=== PATIENT | female | born 1985 | race Caucasian/White ===

== ENCOUNTER 2017-04-03 22:45 | Inpatient (IN) | payer OTHER ==
[2017-04-04] MEDS: DEXTROSE 5%-LACTATED RINGERS 1,000 ML IV SCH ×2 (01:00→05:25)
[2017-04-04 01:31] LABS: BASOPHIL 0.7 % (0-2.0); EOSINOPHIL 0.4 % (0-4.5); MCH 28.7 pg (25.7-33.7); MCHC 32.8 g/dl (32.0-36.0); MEAN CELL VOLUME 87.6 fl (80-96); MEAN PLT VOLUME 8.2 fl (7.5-11.1); NEUTROPHILS 71.9 % (42.8-82.8); PLATELET COUNT 375 K/MM3 (134-434); RDW 14.6 % (11.6-15.6); WHITE BLOOD COUNT 14.4 K/mm3 (4.0-10.0)
[2017-04-04 01:51] VITALS: BMI 34.0
[2017-04-04 01:53] LABS: CALCIUM 8.6 mg/dL (8.5-10.1); COCKROFT - GAULT 414.29; CREATININE 0.3 mg/dL (0.55-1.02)
[2017-04-04 02:14] LABS: INR 0.91 (0.82-1.09)
[2017-04-04 02:17] LABS: ACTIVATED PTT 28.7 SECONDS (26.9-34.4)
--- NOTE | 2017-04-04 08:17 | HP ---
Past Medical History - Primary Care Physician PCP:: Claude Ellison - Admission Chief Complaint: 31yo P3 admitted for sterilization and D&C. History of Present Illness: Multiparity Uterine polyps. History Source: Patient, Medical Record Limitations to Obtaining History: No Limitations - Past Medical History [employer] FEEDER: Yes: Migraine Cardiovascular: No: AFIB, Aneurysm, Aortic Insufficiency, Aortic Stenosis, CAD, CHF, Deep Vein Thrombosis, HTN, Hyperlipdemia, [place], Mitral Insufficiency, Mitral Stenosis, Murmur, Pulmonary Hypertension, Other Pulmonary: No: Asthma, Bronchitis, Cancer, COPD, O2 Dependent, Pneumonia, Previously Intubated, Pulmonary Embolus, Pulmonary Fibrosis, Sleep Apnea, Other Gastrointestinal: No: Ascites, Cancer, Constipation, Crohn's Disease, Diverticulitis, Diverticulosis, Esophageal Varices, Gastritis, GERD, GI Bleed, Hemorrhoids, Hiatal Hernia, Inflamatory Bowel Disease, Irritable Bowel Disease, Pancreatitis, Peptic Ulcer Disease, Ulcerative Colitis, Other Hepatobiliary: No: Cirrhosis, Cholelithiasis, Cholecystitis, Choledocholithiasis , Hepatitis A, Hepatitis B, Hepatitis C, Other Renal/: No: Renal Failure, Renal Inusuff, BPH, Cancer, Hematuria, Hemodialysis , Neurogenic Bladder, Renal Calculi, UTI, Other Reproductive: No: Ectopic , Endometriosis, Fibroids, PID, Polycystic Ovary Syndrome, Postmenopausal, Other ...: 1 ...Para: 0 ...Term: 0 ...: 0 ...Spon : 0 ...Induced : 0 ...Multiple Gestation: 0 ... Weeks Gestation by Dates: 0 ...EDC by Dates: 04/05/17 ...EDC by Sono: 04/05/17 Heme/Onc: No: Anemia, B12 Deficiency, Bleeding Disorder, Cancer, Current Chemotherapy, Current Radiation Therapy, Hemochromatosis, Hypercoaguable State, Myeloproliferative Synd, Sickle Cell Disease, Sickle Cell Trait, Thrombocytopenia, Other Infectious Disease: No: AIDS, C-Diff, Herpes Zoster, HIV, MRSA, STD's, Tuberculosis, VREF, Other Psych: No: Addictions, Anxiety, Bipolar, Depression, Panic, Psychosis, Schizophrenia, Other Musculoskeletal: No: Bursitis, Chronic low back pain, Hemiparesis, Hemiplegia, Osteoarthritis, Paraplegia, Other Rheumatology: No: Fibromyalgia, Gout, Lupus, Rheumatoid Arthritis, Sarcoidosis, Vasculitis, Other ENT: No: Allergic Rhinitis, Sinusitis, Other Endocrine: No: Elliott's Disease, [place]'s Disease, Diabetes Insipidus, Diabetes Mellitus, Hyperparathyroidism, Hyperthyroidism, Hypothyroidism, Osteopenia, SIADH, Other Dermatology: No: Basal Cell, Cellulitis, Eczema, Melanoma, Psoriasis, Squamous Cell, Other - Past Surgical History Hx Myomectomy: No Hx Transabdominal Cerclage: No Additional Surgical History: D&C - Smoking History Smoking history: Never smoked Have you smoked in the past 12 months: No - Alcohol/Substance Use Hx Alcohol Use: No History of Substance Use: reports: None - Social History Usual Living Arrangement: Yes: With Child ADL: Independent Occupation: RN History of Recent Travel: No Home Medications - Allergies Allergies/Adverse Reactions: Allergies Allergy/AdvReac Type Severity Reaction Status Date / Time No Known Allergies Allergy Verified 04/03/17 23:54 Family Disease History - Family Disease History Family History: Denies Review of Systems Findings/Remarks: Well - Review of Systems Constitutional: reports: No Symptoms Eyes: reports: No Symptoms HENT: reports: No Symptoms Neck: reports: No Symptoms Cardiovascular: reports: No Symptoms Respiratory: reports: No Symptoms Gastrointestinal: reports: No Symptoms Genitourinary: reports: No Symptoms Breasts: reports: No Symptoms Reported Musculoskeletal: reports: No Symptoms Integumentary: reports: No Symptoms Neurological: reports: No Symptoms Endocrine: reports: No Symptoms Hematology/Lymphatic: reports: No Symptoms Psychiatric: reports: No Symptoms Pain Intensity: 0 Physical Exam-MEDICAL SCRIBE Vital Signs: Vital Signs Temperature 98.8 F 04/04/17 05:00 Pulse Rate 83 04/04/17 05:00 Respiratory Rate 18 04/04/17 05:00 Blood Pressure 114/74 04/04/17 05:00 O2 Sat by Pulse Oximetry (%) Constitutional: Yes: Well Nourished, No Distress, Calm Eyes: Yes: WNL, Conjunctiva Clear HENT: Yes: WNL, Atraumatic, Normocephalic Neck: Yes: WNL, Supple, Trachea Midline Cardiovascular: Yes: WNL, Regular Rate and Rhythm Respiratory: Yes: WNL, Regular, CTA Bilaterally Gastrointestinal: Yes: WNL, Normal Bowel Sounds, Soft ...Rectal Exam: Yes: WNL Renal/: Yes: WNL Pelvis: Yes: WNL External Genitalia: Yes: Normal Vaginal Exam: Yes: Normal Cervix: Yes: Normal Uterus: Yes: Normal Adnexa: Not Palpable: Left, Right Breast(s): Yes: WNL Musculoskeletal: Yes: WNL Extremities: Yes: WNL Edema: No Integumentary: Yes: WNL Neurological: Yes: WNL, Alert, Oriented ...Motor Strength: WNL Psychiatric: Yes: WNL, Alert, Oriented Labs: CBC, BMP 04/04/17 01:15 04/04/17 01:15 Assessment/Plan 31yo admitted for sterilization and D&C. Risks, benefits, alternatives of surgery were discussed. We discussed the risks of infection, bleeding, scarring , injury to underlying organs and structures, etc. The pt verbalized her understanding and requested to proceed with surgery.
[2017-04-04] MEDS ORDERED: PROMETHAZINE HCL 25 MG/1 ML VIAL IVPB PRN (09:00)
[2017-04-04] MEDS ORDERED: OXYTOCIN 15 UNITS/ LR 250 ML 250 ML IVPB SCH (09:00)
[2017-04-04] MEDS ORDERED: BUTORPHANOL TARTRATE 1 MG/ML VIAL IVPB PRN (09:00)
[2017-04-04 09:45] LABS: URINE MARIJUANA THC NEGATIVE ng/ml (CUTOFF=50)
--- NOTE | 2017-04-04 10:19 | HP ---
Past Medical History - Primary Care Physician PCP:: Claude Ellison - Admission Chief Complaint: 31yo P0 with at EGA [id number] admitted with PROM at 10: 15pm on 04/03/17 History of Present Illness: complicated by late care transfer from [place]. Otherwise uncomplicated care. GCT note seen in chart GBS negative. IVF History Source: Patient, Medical Record Limitations to Obtaining History: No Limitations - Past Medical History CHINESE HERBALIST: No: Alzheimer's, CVA, Dementia, Migraine, Multiple Sclerosis, Peripheral Neuropathy, Parkinson's, Seizure, Syncope, TIA, Vertigo, Other Cardiovascular: No: AFIB, Aneurysm, Aortic Insufficiency, Aortic Stenosis, CAD, CHF, Deep Vein Thrombosis, HTN, Hyperlipdemia, [place], Mitral Insufficiency, Mitral Stenosis, Murmur, Pulmonary Hypertension, Other Pulmonary: No: Asthma, Bronchitis, Cancer, COPD, O2 Dependent, Pneumonia, Previously Intubated, Pulmonary Embolus, Pulmonary Fibrosis, Sleep Apnea, Other Gastrointestinal: No: Ascites, Cancer, Constipation, Crohn's Disease, Diverticulitis, Diverticulosis, Esophageal Varices, Gastritis, GERD, GI Bleed, Hemorrhoids, Hiatal Hernia, Inflamatory Bowel Disease, Irritable Bowel Disease, Pancreatitis, Peptic Ulcer Disease, Ulcerative Colitis, Other Hepatobiliary: No: Cirrhosis, Cholelithiasis, Cholecystitis, Choledocholithiasis , Hepatitis A, Hepatitis B, Hepatitis C, Other Renal/: No: Renal Failure, Renal Inusuff, BPH, Cancer, Hematuria, Hemodialysis , Neurogenic Bladder, Renal Calculi, UTI, Other ...: 1 ...Para: 0 ...Term: 0 ...: 0 ...Spon : 0 ...Induced : 0 ...Multiple Gestation: 0 ...LMP: 06/29/16 ... Weeks Gestation by Dates: 0 ...EDC by Dates: 04/05/17 ...EDC by Sono: 04/05/17 Heme/Onc: No: Anemia, B12 Deficiency, Bleeding Disorder, Cancer, Current Chemotherapy, Current Radiation Therapy, Hemochromatosis, Hypercoaguable State, Myeloproliferative Synd, Sickle Cell Disease, Sickle Cell Trait, Thrombocytopenia, Other Infectious Disease: No: AIDS, C-Diff, Herpes Zoster, HIV, MRSA, STD's, Tuberculosis, VREF, Other Psych: No: Addictions, Anxiety, Bipolar, Depression, Panic, Psychosis, Schizophrenia, Other Musculoskeletal: No: Bursitis, Chronic low back pain, Hemiparesis, Hemiplegia, Osteoarthritis, Paraplegia, Other Rheumatology: No: Fibromyalgia, Gout, Lupus, Rheumatoid Arthritis, Sarcoidosis, Vasculitis, Other ENT: No: Allergic Rhinitis, Sinusitis, Other Endocrine: No: White's Disease, [place]'s Disease, Diabetes Insipidus, Diabetes Mellitus, Hyperparathyroidism, Hyperthyroidism, Hypothyroidism, Osteopenia, SIADH, Other Dermatology: No: Basal Cell, Cellulitis, Eczema, Melanoma, Psoriasis, Squamous Cell, Other - Past Surgical History Hx Myomectomy: No Hx Transabdominal Cerclage: No Additional Surgical History: Laparotomy via midline incison for ovarian cystectomy. - Smoking History Smoking history: Never smoked Have you smoked in the past 12 months: No - Alcohol/Substance Use Hx Alcohol Use: No History of Substance Use: reports: None - Social History ADL: Independent Occupation: RN History of Recent Travel: No Home Medications - Allergies Allergies/Adverse Reactions: Allergies Allergy/AdvReac Type Severity Reaction Status Date / Time No Known Allergies Allergy Verified 04/03/17 23:54 Family Disease History - Family Disease History Family History: Denies Review of Systems - Review of Systems Constitutional: reports: No Symptoms Eyes: reports: No Symptoms HENT: reports: No Symptoms Neck: reports: No Symptoms Cardiovascular: reports: No Symptoms Respiratory: reports: No Symptoms Gastrointestinal: reports: No Symptoms Genitourinary: reports: No Symptoms Musculoskeletal: reports: No Symptoms Integumentary: reports: No Symptoms Neurological: reports: No Symptoms Endocrine: reports: No Symptoms Hematology/Lymphatic: reports: No Symptoms Psychiatric: reports: No Symptoms Pain Intensity: 2 Physical Exam - Maternity Vital Signs: Vital Signs Temperature 97.8 F 04/04/17 10:00 Pulse Rate 70 04/04/17 10:00 Respiratory Rate 18 04/04/17 10:00 Blood Pressure 123/81 04/04/17 10:00 O2 Sat by Pulse Oximetry (%) Constitutional: Yes: Well Nourished, No Distress, Calm Eyes: Yes: WNL, Conjunctiva Clear HENT: Yes: WNL, Atraumatic, Normocephalic Neck: Yes: WNL, Supple, Trachea Midline Cardiovascular: Yes: WNL, Regular Rate and Rhythm Lungs: Clear to auscultation, Normal air movement - Abdominal Exam/OB Fundal Height: 39 Number of Fetuses: Single Presentation: Vertex Contractions: Yes Regularity: Irregular Intensity: Mild Monitor Mode: External Heart Rate (range): 140 Heart Rate Location: Midline Category: I Accelerations: Uniform Decelerations: None - Vaginal Exam/OB Vaginal Bleediing: No Speculum Exam: No Dilatation (cm): 0.5 Effacement (%): 0 Amniotic Membrane Status: Leaking Nitrazine Test: Positive Amniotic Fluid: Yes: Clear Presentation: Vertex/Position Station: -4 (Adequate gynecoid pelvimetry.) - Physical Exam Musculoskeletal: Yes: WNL Extremities: Yes: WNL Edema: No Edema: LLE: Trace, RLE: Trace Integumentary: Yes: WNL Deep Tendon Reflex Grade: Normal +2 ...Motor Strength: WNL Psychiatric: Yes: WNL, Alert, Oriented - Labs Lab Results: CBC, BMP 04/04/17 01:15 04/04/17 01:15 Hemorrhage Risk Assessment - Risk Factors Medium Risk Factors: Yes: None High Risk Factors: Yes: None Risk Score: 1 Risk Level: Medium Risk Imaging - Results Ultrasound: Report Reviewed Assessment/Plan 31yo P0 with at EGA 39wd amitted with PROM last night. The heart tracing is Category I. The pt is not in labor. The patient initially requested an elective section but then changed her mind and wants to try labor. We discussed the risks of labor, delivery, section, pitocin induction, etc. I explained the risks of pain, distress, uterine tachysystole, hemorrhage, emergency C/S, etc. The pt verbalized her understanding and requested to proceed with labor indx.
[2017-04-04] MEDS ORDERED: AMPICILLIN - 100 ML IVPB ONE (14:30)
[2017-04-04] MEDS ORDERED: ELECTROLYTE-148 SOLN 500 ML IV ONE (17:30)
[2017-04-04] MEDS ORDERED: CITRIC ACID/SODIUM CITRATE 30 ML UNIT-DOSE CUP PO ONE (17:45)
[2017-04-04] MEDS ORDERED: ELECTROLYTE-148 SOLN 1,000 ML IV SCH (18:00)
[2017-04-04] MEDS: AMPICILLIN - 100 ML IVPB SCH (18:16)
--- NOTE | 2017-04-04 20:04 | PN ---
Progress Note, Physician Chief Complaint: 31 yo P0 assumed care of this patient @ 8am she declined to experience any pain, declined Pitocin augmentation now has prolonged ruptured membranes and declines vaginal exams - Current Medication List Current Medications: Active Medications Butorphanol Tartrate (Stadol -) 2 mg IVPB ONCE PRN PRN Reason: FOR PAIN Last Admin: 04/04/17 11:30 Dose: 2 mg Dextrose/Lactated Ringer's (D5-Lr -) 1,000 mls @ 125 mls/hr IV ASDIR SRIDEVI Last Admin: 04/04/17 05:25 Dose: 125 mls/hr Oxytocin/Lactated Ringer's (Lactated Ringer+ 15 Units Pitocin) 250 mls @ 1 mls/ hr IVPB ASDIR SRIDEVI; 0.06 UNIT/HR PRN Reason: Protocol Last Titration: 04/04/17 11:30 Dose: 0 unit/hr Ampicillin Sodium (Ampicillin 1 Gram Ivpb (Pre-Docked)) 100 mls @ 100 mls/hr IVPB Q4H SRIDEVI Stop: 04/05/17 18:14 Last Admin: 04/04/17 18:16 Dose: 100 mls/hr Parenteral Electrolytes (Plasma-Lyte 148 -) 1,000 mls @ 125 mls/hr IV ASDIR SRIDEVI Promethazine HCl (Phenergan Injection -) 25 mg IVPB ONCE PRN PRN Reason: FOR PAIN Last Admin: 04/04/17 11:30 Dose: 25 mg - Objective Vital Signs: Vital Signs Temperature 98.4 F 04/04/17 14:00 Pulse Rate 85 04/04/17 14:00 Respiratory Rate 18 04/04/17 14:00 Blood Pressure 130/83 04/04/17 14:00 O2 Sat by Pulse Oximetry (%) Labs: CBC, BMP 04/04/17 01:15 04/04/17 01:15 INR, PTT INR 0.91 (0.82-1.09) 04/04/17 01:15 Assessment/Plan 31 yo P0 with prolonged ROM desiring c/s long conversation with patient discussing all risks of a c/s Risk of injury to bowel, bladder, vessels, infection, bleeding difficulties with wound healing, risk of having another, repeat c/s
[2017-04-04] MEDS ORDERED: morphine SULFATE/Preservative Free 0.5 MG/ML (1cc Syringe) SPIN ONE (20:08)
[2017-04-04] MEDS ORDERED: ONDANSETRON 4 MG/2 ML VIAL IVPB PRN (20:13)
[2017-04-04] MEDS ORDERED: BENZOCAINE 20% 57 GM BOTTLE TP PRN (21:44)
[2017-04-04] MEDS ORDERED: IBUPROFEN 600 MG TABLET (FP) PO PRN (21:44)
[2017-04-04] MEDS ORDERED: IBUPROFEN 800 MG/8 ML IJ IVPB PRN (21:44)
[2017-04-04] MEDS ORDERED: WITCH HAZEL 50% (TUCKS) 40 PAD/JAR PAD TP PRN (21:44)
[2017-04-04] MEDS ORDERED: BENZOCAINE 28 GM HEMORRHOIDAL OINTMENT PR PRN (21:44)
[2017-04-04] MEDS ORDERED: diphenhydrAMINE HCL 25 MG CAPSULE (FP) PO PRN (21:44)
[2017-04-04] MEDS ORDERED: METHYLERGONOVINE MALEATE 0.2 MG/1 ML AMP IM PRN (21:44)
[2017-04-04] MEDS ORDERED: OXYTOCIN 20 UNITS in 0.9% NS 1,000 ML IV SCH (21:45)
[2017-04-04] MEDS ORDERED: DEXTROSE 5%-LACTATED RINGERS 1,000 ML IV SCH (21:45)
--- NOTE | 2017-04-04 21:53 | PN ---
Delivery - Delivery Vaginal Delivery: No Problems Section: Primary Type of Anesthesia: Epidural Episiotomy/Laceration: None EBL (cc): 700 Delivery, Single - Stages of Labor Date 1st Stage Initiatied: 04/03/17 Time 1st Stage Initiated: 21:15 Date of Delivery: 04/04/17 Time of Delivery: 20:33 Date Placenta Delivered: 04/04/17 Time Placenta Delivered: 20:34 Placenta: Yes: Expressed - Condition of Food Beverage Manager/Supervisor Plate Forming Present: Yes Infant Gender: Female Weight: 7 lb 4.8 oz Position: Left, OA - 1 Minute Total Score: 9 5 Minutes Total Score: 9 - Feeding Plan Benefits of Exclusively reinforced: Yes Remarks - Remarks Remarks: Multiple abdominal adhesion, due to prior surgery Loop of large bowel adherent to anterior peritoneum Left ovary identified, encased in adhesion Right ovary was not seen UO 200cc Fluids 1200cc
[2017-04-05] MEDS ORDERED: CEFAZOLIN 1 GM/D5W 50 ML IVPB SCH (02:00)
[2017-04-05] MEDS ORDERED: CEFAZOLIN (PRE-DOCKED) 50 ML IVPB ONE (02:28)
[2017-04-05] MEDS: CEFAZOLIN 1 GM/D5W 50 ML IVPB SCH ×2 (02:34→10:28)
[2017-04-05] MEDS: ACETAMINOPHEN 325 MG TABLET (FP) PO PRN ×3 (06:22→18:36)
[2017-04-05] MEDS: AMPICILLIN - 100 ML IVPB SCH (07:00)
[2017-04-05 07:37] LABS: BASOPHIL 0.3 % (0-2.0); EOSINOPHIL 0.1 % (0-4.5); MCH 29.3 pg (25.7-33.7); MCHC 33.7 g/dl (32.0-36.0); MEAN CELL VOLUME 87.2 fl (80-96); MEAN PLT VOLUME 7.9 fl (7.5-11.1); NEUTROPHILS 82.3 % (42.8-82.8); PLATELET COUNT 276 K/MM3 (134-434); RDW 14.7 % (11.6-15.6); WHITE BLOOD COUNT 16.7 K/mm3 (4.0-10.0)
--- NOTE | 2017-04-05 08:06 | PN ---
Progress Note, Physician Chief Complaint: Pt. pain controlled, no ACUÑA. Not yet ambulating and still has rosas. No apparent anesthesia complications. - Current Medication List Current Medications: Active Medications Acetaminophen (Tylenol -) 650 mg PO Q4H PRN PRN Reason: FEVER OR PAIN Last Admin: 04/05/17 06:22 Dose: 650 mg Benzocaine (Americaine Ointment -) 1 applic NC PRN PRN PRN Reason: PAIN Benzocaine (Americaine 20% Adkins -) 1 spray TP PRN PRN PRN Reason: PAIN Bisacodyl (Dulcolax Suppository -) 10 mg RC PRN PRN PRN Reason: CONSTIPATION Butorphanol Tartrate (Stadol -) 2 mg IVPB ONCE PRN PRN Reason: FOR PAIN Last Admin: 04/04/17 11:30 Dose: 2 mg Diphenhydramine HCl (Benadryl Injection -) 25 mg IVPUSH Q4H PRN PRN Reason: Pruritis Last Admin: 04/05/17 06:21 Dose: 25 mg Diphenhydramine HCl (Benadryl -) 25 mg PO Q8H PRN PRN Reason: FOR ITCHING Diphtheria/Tetanus/Acell Pertussis (Boostrix -) 0.5 ml IM .ONCE ONE Stop: 04/06/17 10:01 Dextrose/Lactated Ringer's (D5-Lr -) 1,000 mls @ 125 mls/hr IV ASDIR SRIDEVI Last Admin: 04/04/17 05:25 Dose: 125 mls/hr Oxytocin/Lactated Ringer's (Lactated Ringer+ 15 Units Pitocin) 250 mls @ 1 mls/ hr IVPB ASDIR SRIDEVI; 0.06 UNIT/HR PRN Reason: Protocol Last Titration: 04/04/17 11:30 Dose: 0 unit/hr Parenteral Electrolytes (Plasma-Lyte 148 -) 1,000 mls @ 125 mls/hr IV ASDIR SRIDEVI Dextrose/Lactated Ringer's (D5-Lr -) 1,000 mls @ 125 mls/hr IV ASDIR SRIDEVI Cefazolin Sodium (Ancef 1 Gm Premixed Ivpb -) 50 mls @ 100 mls/hr IVPB Q8H-IV SRIDEVI Stop: 04/05/17 10:29 Last Admin: 04/05/17 02:34 Dose: 100 mls/hr Ibuprofen (Motrin -) 600 mg PO Q4H PRN PRN Reason: PAIN Ibuprofen (Caldolor Injection -) 800 mg IVPB Q6H PRN PRN Reason: PAIN Stop: 04/05/17 09:45 Methylergonovine Maleate (Methergine Injection -) 0.2 mg IM Q4H PRN PRN Reason: EXCESSIVE BLEEDING Oxycodone HCl (Roxicodone -) 5 mg PO Q4H PRN PRN Reason: PAIN LEVEL 1-5 Oxycodone HCl (Roxicodone -) 10 mg PO Q4H PRN PRN Reason: PAIN LEVEL 6-10 Promethazine HCl (Phenergan Injection -) 25 mg IVPB ONCE PRN PRN Reason: FOR PAIN Last Admin: 04/04/17 11:30 Dose: 25 mg Senna/Docusate Sodium (Pericolace -) 2 tablet PO HS PRN PRN Reason: CONSTIPATION Simethicone (Mylicon -) 80 mg PO Q4H PRN PRN Reason: GAS Witch Kayleigh/Glycerin (Tucks Pads -) 1 pad TP PRN PRN PRN Reason: PAIN - Objective Vital Signs: Vital Signs Temperature 101.9 F H 04/05/17 06:00 Pulse Rate 100 H 04/05/17 06:00 Respiratory Rate 20 04/05/17 07:00 Blood Pressure 100/45 04/05/17 06:00 O2 Sat by Pulse Oximetry (%) 98 04/04/17 22:20 Constitutional: Yes: Well Nourished, No Distress, Calm Musculoskeletal: Yes: WNL Neurological: Yes: WNL, Alert, Oriented ...Motor Strength: WNL Labs: CBC, BMP 04/05/17 06:00 04/04/17 01:15 INR, PTT INR 0.91 (0.82-1.09) 04/04/17 01:15 Assessment/Plan POD#1 s/p under spinal with duramorph. Doing well. D/C from anesthesia care once she ambulates and voids normally.
[2017-04-05 10:48] LABS: BASOPHIL 0.4 % (0-2.0); EOSINOPHIL 0.1 % (0-4.5); MCH 28.9 pg (25.7-33.7); MCHC 33.1 g/dl (32.0-36.0); MEAN CELL VOLUME 87.3 fl (80-96); MEAN PLT VOLUME 7.5 fl (7.5-11.1); PLATELET COUNT 265 K/MM3 (134-434); RDW 14.6 % (11.6-15.6)
[2017-04-05 11:56] LABS: URINE APPEARANCE CLEAR; URINE BILIRUBIN NEGATIVE (NEGATIVE); URINE COLOR LTYELLOW; URINE GLUCOSE (UA) NEGATIVE (NEGATIVE); URINE KETONE TRACE (NEGATIVE); URINE LEUK ESTERASE NEGATIVE (NEGATIVE); URINE NITRITE NEGATIVE (NEGATIVE); URINE PROTEIN NEGATIVE (NEGATIVE); URINE UROBILINOGEN NEGATIVE E.U./dl (0.2-1.0)
[2017-04-05 11:58] LABS: URINE BLOOD 1+ (NEGATIVE)
[2017-04-05 11:59] LABS: URINE MUCUS RARE; URINE RBC 8 /hpf (0-3); URINE WBC 1 /hpf (3-5)
--- NOTE | 2017-04-05 13:13 | PN ---
Post Progress Note - Subjective Subjective: 31 yo P1 now s/p Primary c/section Velásquez removed 2hrs ago, she has not voided, reports flatus, she has not ambulated Post Day: 1 Type of Delivery: Primary C/S Vital Signs: Vital Signs Temperature 99.8 F H 04/05/17 10:00 Pulse Rate 102 H 04/05/17 10:00 Respiratory Rate 20 04/05/17 12:00 Blood Pressure 90/58 04/05/17 10:00 O2 Sat by Pulse Oximetry (%) 98 04/04/17 22:20 Breast Exam: Yes: Soft Uterus: Yes: Fundus Firm Incision: Yes: Dressing dry and intact Abdomen/GI: Yes: Abdomen soft, Passing flatus (+BS), Tolerating PO Lochia: Yes: Rubra Extremities: Yes: Calves non-tender Activity: Other (in bed) - Labs Labs: CBC WBC 15.0 K/mm3 (4.0-10.0) H 04/05/17 09:44 RBC 3.67 M/mm3 (3.60-5.2) 04/05/17 09:44 Hgb 10.6 GM/dL (10.7-15.3) L 04/05/17 09:44 Hct 32.0 % (32.4-45.2) L 04/05/17 09:44 MCV 87.3 fl (80-96) 04/05/17 09:44 MCHC 33.1 g/dl (32.0-36.0) 04/05/17 09:44 RDW 14.6 % (11.6-15.6) 04/05/17 09:44 Plt Count 265 K/MM3 (134-434) 04/05/17 09:44 MPV 7.5 fl (7.5-11.1) 04/05/17 09:44 Neutrophils % 81.0 % (42.8-82.8) 04/05/17 09:44 Lymphocytes % 12.8 % (8-40) 04/05/17 09:44 Monocytes % 5.7 % (3.8-10.2) 04/05/17 09:44 Eosinophils % 0.1 % (0-4.5) 04/05/17 09:44 Basophils % 0.4 % (0-2.0) 04/05/17 09:44 Assessment/Plan 31 yo P1 now s/p Primary LST c/section for prolonged ROM, remote from delivery @ 4cm declining further BRI She had significant bowel adhesions due to prior abdominal surgery Encouraged to ambulate and attempt to void, cont. routine post op care Rh pos, no need for Rhogam
[2017-04-05] MEDS: SIMETHICONE 80 MG TAB.CHEW (FP) PO PRN ×3 (13:35→23:56)
[2017-04-05] MEDS: oxyCODONE HCL 5 MG TABLET PO PRN ×3 (13:36→23:56)
[2017-04-05 13:57] LABS: CALCIUM 8.3 mg/dL (8.5-10.1); COCKROFT - GAULT 248.574; CREATININE 0.5 mg/dL (0.55-1.02)
[2017-04-05] MEDS ORDERED: BISACODYL 10 MG SUPP.RECT RC PRN (21:44)
[2017-04-05] MEDS: IBUPROFEN 600 MG TABLET (FP) PO PRN (23:58)
--- NOTE | 2017-04-06 08:46 | PN ---
Post Progress Note - Subjective Subjective: No complaints, (+) flatus, ambulating, minimal pain Post Day: 2 Type of Delivery: Primary C/S Vital Signs: Vital Signs Temperature 97.9 F 04/06/17 06:00 Pulse Rate 99 H 04/05/17 22:00 Respiratory Rate 18 04/05/17 22:00 Blood Pressure 104/55 04/05/17 22:00 O2 Sat by Pulse Oximetry (%) 98 04/04/17 22:20 Breast Exam: Yes: Soft Uterus: Yes: Fundus Firm, Fundus below umbilicus, Non-tender Incision: Yes: Sutures intact Abdomen/GI: Yes: Abdomen soft, Passing flatus, Tolerating PO Lochia: Yes: Rubra Lochia, amount: Small Extremities: Yes: Calves non-tender, Edema (trace) Perineum: Yes: Intact Activity: Ambulating - Labs Labs: CBC WBC 15.0 K/mm3 (4.0-10.0) H 04/05/17 09:44 RBC 3.67 M/mm3 (3.60-5.2) 04/05/17 09:44 Hgb 10.6 GM/dL (10.7-15.3) L 04/05/17 09:44 Hct 32.0 % (32.4-45.2) L 04/05/17 09:44 MCV 87.3 fl (80-96) 04/05/17 09:44 MCHC 33.1 g/dl (32.0-36.0) 04/05/17 09:44 RDW 14.6 % (11.6-15.6) 04/05/17 09:44 Plt Count 265 K/MM3 (134-434) 04/05/17 09:44 MPV 7.5 fl (7.5-11.1) 04/05/17 09:44 Neutrophils % 81.0 % (42.8-82.8) 04/05/17 09:44 Lymphocytes % 12.8 % (8-40) 04/05/17 09:44 Monocytes % 5.7 % (3.8-10.2) 04/05/17 09:44 Eosinophils % 0.1 % (0-4.5) 04/05/17 09:44 Basophils % 0.4 % (0-2.0) 04/05/17 09:44 Assessment/Plan 31yo P1 s/p primary LT C/S, doing well stable, afebrile x 24hrs. No focal source of infx or fever. CXR pending care instructions reviewed. Continue routine postop care. Ambulation encouraged.
[2017-04-06] MEDS ORDERED: DIPHTH,PERTUSS(ACELL),TET 0.5 ML DISP.SYRIN IM ONE (13:00)
--- NOTE | 2017-04-06 13:42 | OP ---
DATE OF OPERATION: 04/04/2017 PREOPERATIVE DIAGNOSIS: A 31-year-old para 0 with prolonged rupture of membranes admitted on April 03 remote from delivery at 4 cm dilation and prior abdominal surgery for removal of right ovarian cyst, likely adnexa. PROCEDURE: Primary low-segment transverse section and lysis of adhesion. SURGEON: Perry Lopez MD BARKEEP: Claude Ellison MD DESCRIPTION OF THE OPERATIVE PROCEDURE: After ensuring informed consent and listing all risks, benefits, and alternatives to the patient which included risks of injury to the bowel, bladder, vessels, infection and bleeding, and harder recovery, and possibly need for subsequent delivery with a subsequent , patient adamantly requested primary section. Patient was brought to the operating room and placed into dorsal supine position with left lateral tilt. Abdomen was prepped in a sterile fashion and draped. Pfannenstiel skin incision was made with a scalpel and carried down to the level of fascia with the scalpel. Fascia was nicked at the midline and extended bilaterally with Bovie cautery. Muscle was split in the midline and subsequently peritoneum was identified, tented with hemostats, and entered sharply with good visualization of underlying bowel which was adhesed to the anterior peritoneum. The bladder was retracted with the lower edge of the [place]. The vesicouterine peritoneum was tented and dissected bilaterally with Metzenbaum scissors and bladder flap was created and retracted with the [place]. Uterine incision was made with the scalpel and dissected bilaterally with bandage scissors. 's head was delivered atraumatically in the left occiput anterior position. The was delivered without any difficulty. Cord was clamped and cut and female which was 7 pounds 4.8 ounces was given to colorectal surgeon. Apgars were 9 and 9. Placenta was expressed. Uterus was cleared of clots and debris and repaired with 0 Biosyn in running locking fashion. A 2nd imbricating layer was created to cover the 1st layer also with 0 Biosyn suture. Subsequently, excellent hemostasis was achieved and peritoneum was surveyed and it was identified that there were multiple adhesions of the large loop of bowel densely adherent to the anterior peritoneum as well as the omentum adherent to the anterior peritoneum, so there was difficulty fully repairing the parietal peritoneum. Muscle was reapproximated with 0 Biosyn in the midline to cover the internal organs. Prior to muscle repair, it was also identified that patient only had left adnexa which was encased in a lot of adhesion due to prior surgery. The fascia was repaired with 0 Vicryl and subcuticular stitches were placed with 2-0 chromic and skin was reapproximated in subcutaneous fashion. Patient had 200 mL of urine output, received 1200 mL of Plasmalyte, and estimated blood loss was 700 mL. Uterus was expressed of clots and debris. All instrument and sponge counts were correct x2. Patient was brought to the recovery room in stable condition. PERRY LOPEZ M.D. [id number]
[2017-04-06] MEDS: oxyCODONE HCL 5 MG TABLET PO PRN (13:56)
[2017-04-06] MEDS: IBUPROFEN 600 MG TABLET (FP) PO PRN (13:57)
[2017-04-06] MEDS: SIMETHICONE 80 MG TAB.CHEW (FP) PO PRN (13:57)
[2017-04-06] MEDS ORDERED: SENNOSIDES/DOCUSATE COMBO (SENNA PLUS) TABLET (UD) PO PRN (22:00)
[2017-04-07] MEDS: SIMETHICONE 80 MG TAB.CHEW (FP) PO PRN ×3 (04:09→22:21)
[2017-04-07] MEDS: ACETAMINOPHEN 325 MG TABLET (FP) PO PRN ×3 (04:09→22:21)
[2017-04-07] MEDS: IBUPROFEN 600 MG TABLET (FP) PO PRN ×3 (04:12→22:22)
--- NOTE | 2017-04-07 07:56 | PN ---
Post Progress Note - Subjective Subjective: Patient without acute complaints. Reports tolerating oral intake without nausea or vomiting. Ambulating without dizziness. Denies fevers or chills. Pain well controlled with oral pain medication. without difficulty. Passing flatus. Post Day: 3 Type of Delivery: Primary C/S Vital Signs: Vital Signs Temperature 98.5 F 04/06/17 22:00 Pulse Rate 92 H 04/06/17 22:00 Respiratory Rate 18 04/06/17 22:00 Blood Pressure 96/51 04/06/17 22:00 O2 Sat by Pulse Oximetry (%) 98 04/04/17 22:20 Breast Exam: Yes: Engorged Uterus: Yes: Fundus Firm, Fundus below umbilicus Incision: Yes: Sutures intact Abdomen/GI: Yes: Abdomen soft, Passing flatus, Tolerating PO. No: Tender Lochia: Yes: Serosa Lochia, amount: Small Activity: Ambulating - Labs Labs: CBC WBC 15.0 K/mm3 (4.0-10.0) H 04/05/17 09:44 RBC 3.67 M/mm3 (3.60-5.2) 04/05/17 09:44 Hgb 10.6 GM/dL (10.7-15.3) L 04/05/17 09:44 Hct 32.0 % (32.4-45.2) L 04/05/17 09:44 MCV 87.3 fl (80-96) 04/05/17 09:44 MCHC 33.1 g/dl (32.0-36.0) 04/05/17 09:44 RDW 14.6 % (11.6-15.6) 04/05/17 09:44 Plt Count 265 K/MM3 (134-434) 04/05/17 09:44 MPV 7.5 fl (7.5-11.1) 04/05/17 09:44 Neutrophils % 81.0 % (42.8-82.8) 04/05/17 09:44 Lymphocytes % 12.8 % (8-40) 04/05/17 09:44 Monocytes % 5.7 % (3.8-10.2) 04/05/17 09:44 Eosinophils % 0.1 % (0-4.5) 04/05/17 09:44 Basophils % 0.4 % (0-2.0) 04/05/17 09:44 Assessment/Plan 31 yoPOD #3 s/p primary CD, afebrile, vital signs stable, doing well 1. Continue routine postoperative care. 2. Encourage ambulation and incentive spirometer use 3. Continue oral pain medication 4. Anticipate discharge home postoperative day #4
[2017-04-07 08:27] LABS: BASOPHIL 0.3 % (0-2.0); EOSINOPHIL 0.6 % (0-4.5); MCH 29.5 pg (25.7-33.7); MCHC 33.6 g/dl (32.0-36.0); MEAN CELL VOLUME 87.6 fl (80-96); MEAN PLT VOLUME 7.8 fl (7.5-11.1); NEUTROPHILS 76.1 % (42.8-82.8); PLATELET COUNT 312 K/MM3 (134-434); RDW 14.7 % (11.6-15.6); WHITE BLOOD COUNT 12.7 K/mm3 (4.0-10.0)
[2017-04-08] MEDS: ACETAMINOPHEN 325 MG TABLET (FP) PO PRN ×2 (01:46→08:22)
[2017-04-08] MEDS: IBUPROFEN 600 MG TABLET (FP) PO PRN ×2 (01:46→08:23)
[2017-04-08] MEDS: SIMETHICONE 80 MG TAB.CHEW (FP) PO PRN ×2 (01:47→08:22)
--- NOTE | 2017-04-08 05:00 | DS ---
Physical Exam-INTERNET MARKETING STRATEGIST Vital Signs: Vital Signs Temperature 97.9 F 04/07/17 22:00 Pulse Rate 90 04/07/17 22:00 Respiratory Rate 20 04/07/17 22:00 Blood Pressure 119/90 04/07/17 22:00 O2 Sat by Pulse Oximetry (%) 98 04/04/17 22:20 Constitutional: Yes: Well Nourished, No Distress, Calm Eyes: Yes: WNL, Conjunctiva Clear, EOM Intact HENT: Yes: WNL, Atraumatic, Normocephalic Neck: Yes: WNL, Supple, Trachea Midline Cardiovascular: Yes: WNL, Regular Rate and Rhythm Respiratory: Yes: WNL, Regular, CTA Bilaterally Gastrointestinal: Yes: WNL ...Rectal Exam: Yes: WNL Renal/: Yes: WNL Vaginal Exam: Yes: Normal ....Post : Yes: Uterus firm, Uterus non-tender, Slight lochia rubra Breast(s): Yes: WNL Musculoskeletal: Yes: WNL Extremities: Yes: WNL Integumentary: Yes: WNL Wound/Incision: Yes: Clean/Dry, Well Approximated, Sutures Intact Neurological: Yes: WNL, Alert, Oriented ...Motor Strength: WNL Psychiatric: Yes: WNL, Alert, Oriented Labs: CBC, BMP 04/07/17 07:45 04/05/17 13:00 Delivery - Delivery Vaginal Delivery: No Problems Section: Primary, Low Flap Transverse Type of Anesthesia: Spinal Episiotomy/Laceration: None EBL (cc): 700 Delivery, Single - Stages of Labor Date 1st Stage Initiatied: 04/03/17 Time 1st Stage Initiated: 21:15 Date of Delivery: 04/04/17 Time of Delivery: 20:33 Time Placenta Delivered: 20:34 Placenta: Yes: Expressed - Condition of Bumper Operator/Site Head Present: Yes Name: Eugenia Espinosa Infant Gender: Female Weight: 7 lb 4.8 oz Position: Left, OA Total Hours ROM (Hrs/Mins): 20HRS/18MINUTES - 1 Minute Total Score: 9 5 Minutes Total Score: 9 - Feeding Plan Initial Plan: Elected not to breastfeed exclusively throughout hospitalization Benefits of Exclusively reinforced: Yes Discharge Summary Reason For Visit: ADMIT FOR LABOR Procedures: Principal: primary LST c/s Condition: Good - Instructions Diet, Activity, Other Instructions: regular diet, follow up office 1 week Referrals: Davis Claudio MD [Staff Physician] - Disposition: HOME - Home Medications Comprehensive Discharge Medication List: Ambulatory Orders Ibuprofen [Motrin -] 600 mg PO QID #28 tablet 04/07/17
[2017-04-08 08:35] VITALS: BP 101/76; PULSE 80; TEMP 98
--- NOTE | 2017-04-08 15:29 | PATH ---
Surgical Pathology Report Patient Name: CHRISTAL MIRANDA Med. Rec. #: [id number] /Age/Gender: 1985 (Age: 31) / F Account: [id number] Location: [facility] OBS/TELEPHONE WORKER Taken: 04/04/2017 Received: 04/05/2017 Reported: 04/08/2017 Physicians: Claude Ellison M.D. Specimen(s) Received PLACENTA Clinical History 31 yo female having primary c/section Ovarian cyst removed 2010 Final Diagnosis PLACENTA, DELIVERY: FOCALLY DISRUPTED THIRD TRIMESTER PLACENTA WITH FOCAL INFARCT AND FIBRIN THROMBUS, MODERATE PREVILLOUS, PERIVILLOUS, AND PRECHORIONIC FIBRIN DEPOSITION, THREE VESSEL UMBILICAL CORD, AND UNREMARKABLE PLACENTAL MEMBRANES. Electronically Signed Miquel Santana M.D. Gross Description The specimen is received fresh, labeled "placenta" and is a 475 gram, 19.0 x 15.5 x 2.2 cm placenta with attached membranes and umbilical cord. The attached membranes are rand, translucent with focal opacities and insert marginally. The umbilical cord measures 27 cm in length and averages 1.5 cm in diameter. The cord inserts eccentrically, 4.5 cm to the nearest margin. No true knots or strictures are identified. Cut surface of the umbilical cord reveals 3 vessels. The surface is harley-blue with fibrin deposition and appropriate caliber vessels. The maternal surface is red-brown with focal defects. Sectioning reveals a 1.8 cm in greatest dimension rand lesion subjacent to the umbilical cord insertion site. The remaining placental parenchyma is red-brown and spongy. Butcher Supervisor sections are submitted in 5 cassettes as follows: 1-membrane rolls; 2-umbilical cord; 3-lesion at umbilical cord insertion site; 0-9-labiauizpvszsa full thickness sections of placenta. /04/07/2017 [facility]04/07/2017
== END 2017-04-08 12:15 | disposition home or self-care (01) | DRG 540 ==
LOC: JDEL 22:45 → JLDR 04-04 → J3W 04-04 23:36
PROVIDERS: ADMIT Obstetrics & Gynecology; ATTEND Obstetrics & Gynecology
PROC: 10D00Z1 Extraction of Products of Conception, Low, Open Approach (ICD-10-PCS; principal; 2017-04-04)
DX: O42.92 Full-term premature rupture of membranes, unspecified as to length of time between rupture and onset of labor (principal); Z3A.39 39 weeks gestation of pregnancy; Z37.0 Single live birth
CPT/HCPCS: 36415; 59025; 71020-TC; 76819-TC; 80048; 80307; 81003; 81015; 85025; 85610; 85730; 86593; 86850; 86900; 86901; 87040; 87086; 88307-TC; 90715

== ENCOUNTER 2019-02-18 15:34 | Emergency (ER) | payer OTHER ==
[2019-02-18 15:38] VITALS: TEMP 98.4; BMI 32.0
--- NOTE | 2019-02-18 16:01 | PDOC ---
History of Present Illness - General Chief Complaint: Nausea/Vomiting Stated Complaint: VOMITING Time Seen by Provider: 02/18/19 15:58 History Source: Patient Exam Limitations: No Limitations - History of Present Illness Initial Comments: 33 yo F w no significant pmh presents to the ER via private auto with abdominal pain, nausea, vomiting, and diarrhea since last night at 1 AM. She states she ate some fish and shrimp with her family last night for dinner then they all smoked hooka together. the patient felt a bit nauseous after the meal, went to bed, and then woke up at 1 am with epigastric abdominal pain which did not radiate and was rated 6/10. The pain was associated with nausea and vomiting. She has vomitted 4 times since last night all NBNB. This morning she began experiencing watery diarrhea which was not bloody. She endorses significant chills and sweats but denies having had a fever at any point. Denies fevers, dysuria, frequency, urgency, or syncope. LMP: 02/14 - finishing the last day of her period today. Periods are normal without intermenstrual bleeding or d/c. Denies sexual activity in past 3 months. PCP: Duane Hammonds PSH: b/l ovarian cyst removal Allergies: NKA, NKDA Social Hx: Smokes hooka weekly. Denies alcohol, other substance usage, marijuana , or cigarettes. Past History - Past Medical History Allergies/Adverse Reactions: Allergies Allergy/AdvReac Type Severity Reaction Status Date / Time No Known Allergies Allergy Verified 02/18/19 15:38 Home Medications: Ambulatory Orders NK [No Known Home Medication] 02/18/19 Asthma: No Cancer: No Cardiac Disorders: No COPD: No Diabetes: No HTN: No Seizures: No Thyroid Disease: No - Suicide/Smoking/Psychosocial Hx Smoking History: Never smoked Have you smoked in the past 12 months: No Hx Alcohol Use: No Drug/Substance Use Hx: No Hx Substance Use Treatment: No Review of Systems - Review of Systems Able to Perform ROS?: Yes Comments:: CONSTITUTIONAL: Present: Chills, fatigue Absent: fever EYES: Absent: visual changes ENT: Absent: ear pain, no sore throat CARDIOVASCULAR: Absent: chest pain, no palpitations RESPIRATORY: Absent: cough, no SOB GI: Present: abdominal pain, nausea, vomiting, diarrhea Absent: no constipation GENITOURINARY: Absent: dysuria, no frequency, no hematuria MUSKULOSKELETAL: Absent: back pain, no arthralgia, no myalgia SKIN: Absent: rash NEURO: Absent: headache *Physical Exam - Vital Signs Last Vital Signs Temp Pulse Resp BP Pulse Ox 98.4 F 89 18 114/66 99 02/18/19 15:36 02/18/19 15:36 02/18/19 15:36 02/18/19 15:36 02/18/19 15:36 - Physical Exam Comments: GENERAL: Well-appearing, well-nourished. Moderate distress. HEENT: Normocephalic, atraumatic. PERRL, EOM intact. CARDIOVASCULAR: Normal S1, S2. Regular rate and rhythm. PULMONARY: No evidence of respiratory distress. Lungs clear to auscultation bilaterally. No wheezing, rales or rhonchi. ABDOMEN: There is significant epigastric TTP. + sargent sign. Abdomen is still soft and non-distended with normal BS. EXTREMITIES: Normal ROM in all four extremities. No gross deformities. SKIN: Warm, dry. No rash NEUROLOGICAL: No focal neurological deficits. Procedures - Bedside Ultrasound Bedside Ultrasound: Gallbladder Remarks: Normal Gallbladder US. No stones, wall edema, barb-chol fluid, neg sono sargent sign. Impression: Normal gallbladder US. Heart Score/ECG Review - ECG Intrepretation Rhythm: Regular Rhythm - Scobey Scobey: Normal - P and [place] Delta Wave(s) Present: No WPW: No - ST and T Early Repolarization: No Non Specific ST-T Wave changes: No Flattened T Waves: No Prolonged Q-T Interval: No - ECG Impressions Normal ECG: Yes Non-specific ST Elevation: No Ischemic Changes: No ED Treatment Course - LABORATORY CBC & Chemistry Diagram: 02/18/19 16:18 02/18/19 16:18 Medical Decision Making - Medical Decision Making 33 yo F w no significant pmh presents to the ER via private auto with abdominal pain, nausea, vomiting, and diarrhea since last night at 1 AM. She states she ate some fish and shrimp with her family last night for dinner then they all smoked hooka together. the patient felt a bit nauseous after the meal, went to bed, and then woke up at 1 am with epigastric abdominal pain which did not radiate and was rated 6/10. The pain was associated with nausea and vomiting. She has vomitted 4 times since last night all NBNB. This morning she began experiencing watery diarrhea which was not bloody. She endorses significant chills and sweats but denies having had a fever at any point. Denies fevers, dysuria, frequency, urgency, or syncope. LMP: 02/14 - finishing the last day of her period today. Periods are normal without intermenstrual bleeding or d/c. Denies sexual activity in past 3 months. VS: WNL DDx IBNLT: gastroenteritis - viral vs bacterial, PUD, Gastritis, GERD, pancreatitis, cholecystitis, renal colic, UTI/Pylo, electrolyte/metabolic disturbance, - IUP vs Ectopic. Plan: Cbc, Cmp, lipase, ua, hcg, ekg, RUQ us, IVNS, GI cocktail, analgesia, re- assess. POCUS: normal gallbladder, no stones, edema, barb chol fluid, neg sono sargent. Labs: HCG negative, lipase normal, Urine and bloodwork unremarkable. EKG: Normal sinus rate of 79. Normal QTc of 431. Patient feels much better after medications - am giving her a meal to PO challenge her. If successful will DC. Patient ate a full meal with no nausea or vomiting. - DCing patient with GI referall for follow up in the next 3 to 5 days. *DC/Admit/Observation/Transfer Diagnosis at time of Disposition: Nausea & vomiting, Diarrhea, Abdominal pain - Discharge Dispostion Disposition: HOME Condition at time of disposition: Improved Decision to Admit order: No - Referrals Referrals: Christa Hammonds [Primary Care Provider] - Jaycee Keane DO [Staff Physician] - - Patient Instructions Printed Discharge Instructions: Acute Abdominal Pain, DI for Diarrhea and Traveler's Diarrhea -- Adult, DI for Nausea -- Adult, DI for Vomiting -- Adult Additional Instructions: You came into the ER with nausea, vomiting, abdominal pain, and diarrhea. We looked at your blood and urine and found no abnormalities. We did an ultrasound of your gallbladder which showed no abnormalities. We believe you might have had a stomach virus from food poisoning. We are giving you the number for a nuclear auxiliary operator to call and schedule an anointment with in the next 3 to 5 days. Please also schedule a follow up appointment with your PCP in the next week to make sure you are getting better and being taken care of. Come back to the ER immediately if your pain worsens, you continue to feel nauseous and vomit, or have any other new or worsening concerns. Thank you for coming to the [facility] ER. We hope you feel better soon! Print Language: YI - Post Discharge Activity
[2019-02-18] MEDS ORDERED: ONDANSETRON 4 MG/2 ML VIAL IVPUSH ONE (16:08)
[2019-02-18] MEDS ORDERED: FAMOTIDINE 20 MG/50 ML IVPB 20 MG/50 ML MG IVPB ONE ×2 (16:08→16:32)
[2019-02-18] MEDS ORDERED: SODIUM CHLORIDE 1,000 ML IV STA (16:08)
[2019-02-18] MEDS ORDERED: ACETAMINOPHEN 1000 MG/100 ML VIAL (NON FORMULARY) IVPB ONE (16:08)
[2019-02-18] MEDS ORDERED: MAG HYDROX/AL HYDROX/SIMETH -MYLANTA- ORAL SUSPENSION PO ONE (16:09)
[2019-02-18] MEDS ORDERED: ONDANSETRON 4 MG/2 ML VIAL ONE (16:31)
[2019-02-18] MEDS ORDERED: MAG HYDROX/AL HYDROX/SIMETH 30 ML UNIT-DOSE CUP ONE (16:31)
[2019-02-18 16:36] LABS: BASO % 0.2 % (0-2.0); EOS % 0.8 % (0-4.5); HEMATOCRIT 38.3 % (32.4-45.2); LYMPH % 17.7 % (8-40); MEAN CELL VOLUME 88.3 fl (80-96); MONO % 5.1 % (3.8-10.2); NEUT % 76.2 % (42.8-82.8); PLATELET COUNT 319 K/MM3 (134-434); RBC 4.34 M/mm3 (3.60-5.2); RDW 13.5 % (11.6-15.6); WHITE BLOOD COUNT 9.3 K/mm3 (4.0-10.0)
[2019-02-18 16:43] LABS: EPI CELLS 3.3 /HPF (0-5/HPF); URINE APPEARANCE CLEAR; URINE BACTERIA 26.9 /hpf (NEGATIVE); URINE BILIRUBIN NEGATIVE (NEGATIVE); URINE CASTS 2 /lpf (0-8); URINE COLOR YELLOW; URINE GLUCOSE (UA) NEGATIVE (NEGATIVE); URINE KETONE NEGATIVE (NEGATIVE); URINE LEUK ESTERASE NEGATIVE (NEGATIVE); URINE NITRITE NEGATIVE (NEGATIVE); URINE PROTEIN NEGATIVE (NEGATIVE); URINE RBC 4 /hpf (0-4); URINE WBC 1 /hpf (0-5)
[2019-02-18 16:57] LABS: ALBUMIN 3.7 g/dl (3.4-5.0); ALK PHOS 56 U/L (45-117); ANION GAP 6 MMOL/L (8-16); BILIRUBIN,TOTAL 0.5 mg/dL (0.2-1); BLOOD UREA NITROGEN 11 mg/dL (7-18); CALCIUM 8.9 mg/dL (8.5-10.1); CHLORIDE 104 mmol/L (98-107); CO2 27 mmol/L (21-32); CREATININE 0.5 mg/dL (0.55-1.3); GLUCOSE,RANDOM 87 mg/dL (74-106); LIPASE 89 U/L (73-393); POTASSIUM 3.5 mmol/L (3.5-5.1); SGOT/AST 13 U/L (15-37); SGPT/ALT 24 U/L (13-61); SODIUM 137 mmol/L (136-145); TOT PROT 7.4 g/dl (6.4-8.2)
--- NOTE | 2019-02-18 17:07 | PDOC ---
Documentation entered by Magnolia Hernandez SCRIBE, acting as scribe for Collette Barillas MD. Collette Barillas MD: This documentation has been prepared by the Mary segovia Daisy, SCRIBE, under my direction and personally reviewed by me in its entirety. I confirm that the documentation accurately reflects all work, treatment, procedures, and medical decision making performed by me. Attending Attestation - Resident Resident Name: Rodo Ndiaye - ED Attending Attestation I have performed the following: I have examined & evaluated the patient, The case was reviewed & discussed with the resident, I agree w/resident's findings & plan - HPI HPI: 02/18/19 17:00 33 yo F h/o ovarian cyst, c section here with c/o n/v /d pt states ate shrimp and chicken for dinner, around middle of night awoke with epigastric burning, then developed vomiting and diarhea. pt has had several loose watery stools. also several nonbloody nonbilious vomiting. did have lightheaded and vertigo like sensatio intially, no f/c. no urinary complaints. epigastric pain is burning in quality. no sick contacts. no travel. - Physicial Exam PE: 02/18/19 17:02 on exam pt awake alert lungs clear bilaterally heart rrr no mrg abd soft mild epigastric ruq ttp. no rebound no guarding. no cva tenderness. ext wwp skin warm and dry. nuero alert oriented x 3. finger to nose normal. gait normal. strength normal speech clear. - Medical Decision Making 02/18/19 17:03 differential gastritis gastroenteritis, pancreatitis cholelithiasis, food poisoning dehydration hypokalemia. uti, plan labs lipase ivf antiemetics. pepcid. ua ucg focused ED ultrasound RUQ indication epigastruc ruq pain gallbaldder scanned in two planes using curvilinear probe cbd normal 3.5 mm anterior gallbladder wall <3 mm no wall thickening, edema or pericholecystic fluid. neg sonographic sargent's no stones. impression: normal gallbladder. await labs and response to medication for reassessment. 02/18/19 17:17 lab unremarkbale. noted mild hematuria, however pt is mentruating. Heart Score/ECG Review #1 General ECG Interpretation: Sinus Rhythm, Normal Rate (79), Normal Intervals, No acute ischemic changes
[2019-02-18 20:31] VITALS: BP 110/64; PULSE 74
--- NOTE | 2019-02-19 10:57 | EKG ---
Test Reason : Blood Pressure : / mmHG Vent. Rate : 079 BPM Atrial Rate : 079 BPM P-R Int : 150 ms QRS Dur : 082 ms QT Int : 376 ms P-R-T Axes : 037 045 023 degrees QTc Int : 431 ms NORMAL SINUS RHYTHM NORMAL ECG NO PREVIOUS ECGS AVAILABLE Confirmed by MARYAM LOZANO MD ([id number]) on 02/19/2019 10:57:21 AM Referred By: Confirmed By:MARYAM LOZANO MD
== END 2019-02-18 20:31 | disposition home or self-care (01) ==
LOC: JER 15:34
PROC: 3E033GC Introduction of Other Therapeutic Substance into Peripheral Vein, Percutaneous Approach (ICD-10-PCS; principal; 2019-02-18)
PROC: 3E033NZ Introduction of Analgesics, Hypnotics, Sedatives into Peripheral Vein, Percutaneous Approach (ICD-10-PCS; 2019-02-18)
PROC: 3E033GC Introduction of Other Therapeutic Substance into Peripheral Vein, Percutaneous Approach (ICD-10-PCS; 2019-02-18)
PROC: BF42ZZZ Ultrasonography of Gallbladder (ICD-10-PCS; 2019-02-18)
DX: R10.13 Epigastric pain (principal); R11.2 Nausea with vomiting, unspecified; R19.7 Diarrhea, unspecified
CPT/HCPCS: 36415; 76705-TC; 80053; 81003; 83690; 84703; 85025; 93005; 93010; 96365; 96375; 99283-25; J0131; J7030

== ENCOUNTER 2020-11-14 05:45 | Inpatient (IN) | payer OTHER ==
[2020-11-14] MEDS ORDERED: CITRIC ACID/SODIUM CITRATE 30 ML UNIT-DOSE CUP PO ONE (06:00)
[2020-11-14] MEDS ORDERED: ELECTROLYTE-148 SOLN 500 ML IV ONE (06:00)
[2020-11-14 06:31] VITALS: BMI 34.4
[2020-11-14 06:39] LABS: BASO % 0.3 % (0-2.0); EOS % 0.8 % (0-4.5); HEMATOCRIT 31.4 % (32.4-45.2); HEMOGLOBIN 10.9 GM/dL (10.7-15.3); LYMPH % 26.1 % (8-40); MCH 30.5 pg (25.7-33.7); MCHC 34.8 g/dl (32.0-36.0); MEAN CELL VOLUME 87.4 fl (80-96); MEAN PLT VOLUME 7.8 fl (7.5-11.1); MONO % 4.5 % (3.8-10.2); NEUT % 68.3 % (42.8-82.8); PLATELET COUNT 293 K/MM3 (134-434); RBC 3.59 M/mm3 (3.60-5.2); RDW 14.9 % (11.6-15.6); WHITE BLOOD COUNT 11.4 K/mm3 (4.0-10.0)
[2020-11-14 06:49] LABS: INR 0.96 (0.83-1.09); PROTHROMBIN TIME (PATIENT) 11.6 SEC (9.7-13.0)
[2020-11-14 06:52] LABS: ACTIVATED PTT 29.4 SECONDS (25.2-36.5)
[2020-11-14 06:55] LABS: POTASSIUM 3.5 mmol/L (3.5-5.1)
[2020-11-14 06:57] LABS: BLOOD UREA NITROGEN 5.8 mg/dL (7-18); CALCIUM 8.7 mg/dL (8.5-10.1)
[2020-11-14 07:01] LABS: CREATININE 0.4 mg/dL (0.55-1.3)
[2020-11-14 07:27] LABS: URINE BARBITURATES NEGATIVE ng/ml (CUTOFF=200); URINE BENZODIAZEPINES NEGATIVE ng/ml (CUTOFF=200)
[2020-11-14 07:28] LABS: COCAINE, UR NEGATIVE ng/ml (CUTOFF=300); METHADONE, UR NEGATIVE ng/ml (CUTOFF=300); OPIATES, URI NEGATIVE ng/ml (CUTOFF=300); PHENCYCLIDINE,URINE NEGATIVE ng/ml (CUTOFF=25)
[2020-11-14 07:31] LABS: URINE AMPHETAMINES NEGATIVE ng/ml (CUTOFF=500)
[2020-11-14] MEDS ORDERED: IBUPROFEN 600 MG TABLET (FP) PO PRN (08:05)
[2020-11-14] MEDS ORDERED: ACETAMINOPHEN 325 MG TABLET (FP) PO PRN (08:05)
[2020-11-14] MEDS ORDERED: ONDANSETRON 4 MG/2 ML VIAL IVPUSH PRN (08:05)
[2020-11-14] MEDS ORDERED: morphine SULFATE/PF 0.5 MG/ML (2cc Syringe - QUVA) ONE (08:11)
[2020-11-14] MEDS ORDERED: PHENYLEPHRINE HCL 10 MG/1 ML SINGLE DOSE VIAL ONE (08:11)
[2020-11-14] MEDS ORDERED: ceFAZolin SODIUM 1 GM VIAL ONE ×2 (08:26)
[2020-11-14] MEDS ORDERED: MIDAZOLAM HCL 2 MG/2 ML SINGLE DOSE VIAL ONE (09:00)
[2020-11-14] MEDS ORDERED: IBUPROFEN 800 MG/8 ML IJ IVPB PRN (09:30)
[2020-11-14] MEDS ORDERED: ACETAMINOPHEN 1000 MG/100 ML VIAL (NON FORMULARY) IVPB PRN (09:30)
[2020-11-14] MEDS ORDERED: ONDANSETRON 4 MG/2 ML VIAL IVPB PRN (09:30)
[2020-11-14] MEDS ORDERED: VASOPRESSIN 20 UNITS/ML VIAL IV ONE (09:42)
[2020-11-14] MEDS ORDERED: OXYTOCIN 10 UNITS/ML VIAL ONE ×3 (09:42)
[2020-11-14] MEDS: CEFAZOLIN 2 GM/D5W 2 GM/50 ML ML IVPB SCH ×2 (10:39→17:51)
[2020-11-14] MEDS ORDERED: ACETAMINOPHEN INJECTION 100 ML IVPB ONE (10:55)
[2020-11-14] MEDS: ACETAMINOPHEN 325 MG TABLET (FP) PO PRN (20:52)
[2020-11-14] MEDS: SIMETHICONE 80 MG TAB.CHEW (FP) PO PRN (20:53)
[2020-11-14] MEDS: IBUPROFEN 600 MG TABLET (FP) PO PRN (20:53)
[2020-11-14] MEDS ORDERED: SENNOSIDES/DOCUSATE COMBO (SENNA PLUS) TABLET (UD) PO PRN (22:00)
[2020-11-15] MEDS: IBUPROFEN 600 MG TABLET (FP) PO PRN ×4 (01:29→20:46)
[2020-11-15] MEDS: CEFAZOLIN 2 GM/D5W 2 GM/50 ML ML IVPB SCH (01:29)
[2020-11-15] MEDS: ACETAMINOPHEN 325 MG TABLET (FP) PO PRN (01:30)
[2020-11-15] MEDS: SIMETHICONE 80 MG TAB.CHEW (FP) PO PRN ×3 (01:31→20:46)
[2020-11-15] MEDS: OXYTOCIN 20 UNITS in 0.9% NS 20 UNIT/1,000 ML INFUS.BAG IV SCH ×3 (02:46→22:05)
[2020-11-15] MEDS: oxyCODONE HCL 5 MG TABLET PO PRN ×2 (08:50→15:08)
[2020-11-15 08:51] LABS: BASO % 0.4 % (0-2.0); EOS % 1.6 % (0-4.5); HEMATOCRIT 27.2 % (32.4-45.2); HEMOGLOBIN 9.3 GM/dL (10.7-15.3); MEAN CELL VOLUME 88.2 fl (80-96); MEAN PLT VOLUME 8.1 fl (7.5-11.1); MONO % 5.1 % (3.8-10.2); NEUT % 71.9 % (42.8-82.8); PLATELET COUNT 205 K/MM3 (134-434); RBC 3.09 M/mm3 (3.60-5.2); RDW 15.3 % (11.6-15.6)
[2020-11-15] MEDS ORDERED: DIPHTH,PERTUSS(ACELL),TET 0.5 ML DISP.SYRIN IM ONE (10:00)
[2020-11-15] MEDS ORDERED: FLU VACCINE (FLULAVAL) PF 60 MCG/0.5 ML SYRINGE 2020-2021 IM ONE (10:00)
[2020-11-15] MEDS: ACETAMINOPHEN/CAFFEINE/BUTALBITAL 1 TAB PO PRN ×2 (15:58→20:45)
[2020-11-15] MEDS: ELECTROLYTE-148 SOLN 1,000 ML IV SCH (22:05)
[2020-11-16] MEDS: oxyCODONE HCL 5 MG TABLET PO PRN (00:22)
[2020-11-16] MEDS: IBUPROFEN 600 MG TABLET (FP) PO PRN ×4 (00:22→21:42)
[2020-11-16] MEDS: ACETAMINOPHEN/CAFFEINE/BUTALBITAL 1 TAB PO PRN ×3 (00:23→21:41)
[2020-11-16] MEDS: SIMETHICONE 80 MG TAB.CHEW (FP) PO PRN ×4 (00:24→21:43)
[2020-11-16] MEDS: BISACODYL 10 MG SUPP.RECT RC PRN ×2 (00:24→09:10)
[2020-11-17] MEDS: IBUPROFEN 600 MG TABLET (FP) PO PRN (08:33)
[2020-11-17] MEDS: SIMETHICONE 80 MG TAB.CHEW (FP) PO PRN (08:33)
[2020-11-17] MEDS: ACETAMINOPHEN 325 MG TABLET (FP) PO PRN (08:34)
[2020-11-17 08:39] VITALS: BP 108/64; PULSE 80; TEMP 97.7
== END 2020-11-17 13:30 | disposition home or self-care (01) | DRG 540 ==
LOC: JLDR 05:45 → J3W 13:45
PROVIDERS: ADMIT Specialist; ATTEND Specialist
PROC: 10D00Z1 Extraction of Products of Conception, Low, Open Approach (ICD-10-PCS; principal; 2020-11-14)
PROC: 0UN90ZZ Release Uterus, Open Approach (ICD-10-PCS; 2020-11-14)
DX: O34.219 Maternal care for unspecified type scar from previous cesarean delivery (principal); Z37.0 Single live birth; O89.4 Spinal and epidural anesthesia-induced headache during the puerperium; N73.6 Female pelvic peritoneal adhesions (postinfective); Z3A.38 38 weeks gestation of pregnancy
CPT/HCPCS: 36415; 80048; 80307; 85025; 85610; 85730; 86780; 86850; 86900; 86901; 88307-TC; G0008; J0131; Q2036

== ENCOUNTER 2021-01-18 21:08 | Inpatient (IN) | payer OTHER ==
[2021-01-18] MEDS ORDERED: ACETAMINOPHEN 1000 MG/100 ML VIAL (NON FORMULARY) IVPB ONE (21:52)
[2021-01-18] MEDS ORDERED: SODIUM CHLORIDE 0.9% 500 ML INFUS.BAG IV ONE (21:52)
[2021-01-18] MEDS ORDERED: LIDOCAINE VISCOUS 2% ORAL/TOP 20 ML UNIT-DOSE CUP MM ONE (21:53)
[2021-01-18] MEDS ORDERED: FAMOTIDINE 20 MG/50 ML IVPB 20 MG/50 ML MG IVPB ONE ×2 (21:53→21:55)
[2021-01-18] MEDS ORDERED: MAG HYDROX/AL HYDROX/SIMETH 30 ML UNIT-DOSE CUP PO ONE (21:53)
[2021-01-18] MEDS ORDERED: ACETAMINOPHEN INJECTION 100 ML IVPB ONE (21:55)
[2021-01-18] MEDS ORDERED: MAG HYDROX/AL HYDROX/SIMETH 30 ML UNIT-DOSE CUP ONE (21:55)
[2021-01-18 22:14] LABS: BASO % 0.6 % (0-2.0); EOS % 2.8 % (0-4.5); HEMOGLOBIN 11.8 GM/dL (10.7-15.3); LYMPH % 24.1 % (8-40); MCH 29.1 pg (25.7-33.7); MCHC 33.6 g/dl (32.0-36.0); MEAN CELL VOLUME 86.5 fl (80-96); MEAN PLT VOLUME 8.2 fl (7.5-11.1); MONO % 5.3 % (3.8-10.2); NEUT % 67.2 % (42.8-82.8); PLATELET COUNT 352 K/MM3 (134-434); RBC 4.05 M/mm3 (3.60-5.2); RDW 13.9 % (11.6-15.6); WHITE BLOOD COUNT 13.8 K/mm3 (4.0-10.0)
[2021-01-18 22:19] LABS: INR 0.97 (0.83-1.09); PROTHROMBIN TIME (PATIENT) 11.8 SEC (9.7-13.0)
[2021-01-18 22:22] LABS: POTASSIUM 3.9 mmol/L (3.5-5.1)
[2021-01-18 22:24] LABS: ALBUMIN 3.7 g/dl (3.4-5.0); CALCIUM 9.8 mg/dL (8.5-10.1)
[2021-01-18 22:25] LABS: BLOOD UREA NITROGEN 14.9 mg/dL (7-18)
[2021-01-18 22:28] LABS: CREATININE 0.6 mg/dL (0.55-1.3)
[2021-01-18 22:29] LABS: BILIRUBIN,TOTAL 0.5 mg/dL (0.2-1); TOT PROT 7.7 g/dl (6.4-8.2)
[2021-01-18 23:56] LABS: EPI CELLS >36 /uL (0-25.1); HYALINE CASTS 3 /uL (0-3.1); PH,URINE 6.5 (5.0-8.0); URINE APPEARANCE CLOUDY; URINE BACTERIA 1081 /uL (0-1359); URINE BILIRUBIN NEGATIVE (NEGATIVE); URINE COLOR YELLOW; URINE GLUCOSE (UA) NEGATIVE (NEGATIVE); URINE KETONE NEGATIVE (NEGATIVE); URINE LEUK ESTERASE NEGATIVE (NEGATIVE); URINE NITRITE NEGATIVE (NEGATIVE); URINE PROTEIN 2+ (NEGATIVE); URINE RBC 19 /uL (0-23.9)
[2021-01-19] MEDS: SODIUM CHLORIDE 1,000 ML IV SCH (00:26)
[2021-01-19] MEDS ORDERED: ACETAMINOPHEN 325 MG TABLET (FP) PO PRN (02:42)
[2021-01-19] MEDS ORDERED: ONDANSETRON 4 MG/2 ML VIAL IVPUSH PRN (02:43)
[2021-01-19] MEDS ORDERED: PIPERACILLIN/TAZOB 3.375 GM 3.375 GM/50 ML BAG IVPB ONE ×3 (03:32→18:53)
[2021-01-19] MEDS: PIPERACILLIN/TAZOB 3.375 GM 3.375 GM in DEXTROSE 5%-WATER - 50 ML IVPB SCH ×3 (03:34→18:59)
[2021-01-19] MEDS: DEXTROSE 5%-0.45% SALINE 1,000 ML IV SCH ×2 (03:39→23:07)
[2021-01-19 08:25] LABS: ALBUMIN 3.1 g/dl (3.4-5.0); BLOOD UREA NITROGEN 10.2 mg/dL (7-18)
[2021-01-19 08:29] LABS: BILIRUBIN,TOTAL 1.1 mg/dL (0.2-1)
[2021-01-19 08:30] LABS: TOT PROT 6.8 g/dl (6.4-8.2)
[2021-01-19 08:31] LABS: CREATININE 0.7 mg/dL (0.55-1.3)
[2021-01-19 08:45] LABS: BASO % 0.5 % (0-2.0); EOS % 3.4 % (0-4.5); HEMATOCRIT 33.2 % (32.4-45.2); HEMOGLOBIN 11.4 GM/dL (10.7-15.3); LYMPH % 35.5 % (8-40); MCH 30.1 pg (25.7-33.7); MCHC 34.3 g/dl (32.0-36.0); MEAN CELL VOLUME 87.9 fl (80-96); MEAN PLT VOLUME 8.3 fl (7.5-11.1); NEUT % 51.6 % (42.8-82.8); PLATELET COUNT 299 K/MM3 (134-434); RBC 3.77 M/mm3 (3.60-5.2); WHITE BLOOD COUNT 7.2 K/mm3 (4.0-10.0)
[2021-01-19] MEDS ORDERED: ACETAMINOPHEN INJECTION 100 ML IVPB ONE (12:14)
[2021-01-19] MEDS: ACETAMINOPHEN 1000 MG/100 ML VIAL (NON FORMULARY) IVPB PRN (12:18)
[2021-01-19 22:52] VITALS: BMI 33.3
[2021-01-20] MEDS: SODIUM CHLORIDE 1,000 ML IV SCH (01:12)
[2021-01-20] MEDS ORDERED: PIPERACILLIN/TAZOBACTAM 3.375 GM VIAL IVPB ONE ×3 (01:27→18:12)
[2021-01-20] MEDS ORDERED: DEXTROSE 5%-WATER - 50 ML IVPB ONE ×3 (01:30→18:12)
[2021-01-20] MEDS: PIPERACILLIN/TAZOB 3.375 GM 3.375 GM in DEXTROSE 5%-WATER - 50 ML IVPB SCH ×3 (01:35→20:33)
[2021-01-20] MEDS ORDERED: PIPERACILLIN/TAZOB 3.375 GM 3.375 GM in DEXTROSE 5%-WATER - 50 ML IVPB SCH (02:00)
[2021-01-20] MEDS: DEXTROSE 5%-0.45% SALINE 1,000 ML IV SCH ×2 (05:25→12:52)
[2021-01-20 09:28] LABS: BASO % 0.6 % (0-2.0); EOS % 4.6 % (0-4.5); HEMOGLOBIN 11.9 GM/dL (10.7-15.3)
[2021-01-20 09:30] LABS: POTASSIUM 3.5 mmol/L (3.5-5.1)
[2021-01-20 09:31] LABS: HEMATOCRIT 34.7 % (32.4-45.2); MCH 29.6 pg (25.7-33.7); MCHC 34.1 g/dl (32.0-36.0); MEAN CELL VOLUME 86.7 fl (80-96); NEUT % 54.8 % (42.8-82.8); PLATELET COUNT 382 K/MM3 (134-434); RBC 4.01 M/mm3 (3.60-5.2); RDW 14.1 % (11.6-15.6); WHITE BLOOD COUNT 8.7 K/mm3 (4.0-10.0)
[2021-01-20 09:54] LABS: ALBUMIN 3.5 g/dl (3.4-5.0); CALCIUM 9.1 mg/dL (8.5-10.1)
[2021-01-20 09:58] LABS: BILIRUBIN,TOTAL 1.3 mg/dL (0.2-1); CREATININE 0.6 mg/dL (0.55-1.3); TOT PROT 7.1 g/dl (6.4-8.2)
[2021-01-20] MEDS ORDERED: PROPOFOL 20 ML ONE ×3 (14:41→14:42)
[2021-01-20] MEDS ORDERED: GLYCOPYRROLATE 0.2 MG/1 ML VIAL ONE ×2 (14:41→16:07)
[2021-01-20] MEDS ORDERED: ceFAZolin SODIUM 1 GM VIAL ONE (14:41)
[2021-01-20] MEDS ORDERED: LIDOCAINE HCL/PF 2% SDV 5ML VIAL ONE ×2 (14:41→16:07)
[2021-01-20] MEDS ORDERED: fentaNYL CITRATE 250 MCG/5 ML VIAL ONE (14:41)
[2021-01-20] MEDS ORDERED: SUCCINYLCHOLINE CHLORIDE 200 MG/10 ML SYRINGE ONE (14:42)
[2021-01-20] MEDS ORDERED: ROCURONIUM BROMIDE 50 MG/5 ML SYRINGE ONE (14:42)
[2021-01-20] MEDS ORDERED: MIDAZOLAM HCL 2 MG/2 ML SINGLE DOSE VIAL ONE (14:43)
[2021-01-20] MEDS ORDERED: BUPIVACAINE HCL 100 ML ONE (14:55)
[2021-01-20] MEDS ORDERED: PROMETHAZINE HCL 25 MG/1 ML VIAL IVPUSH PRN (15:13)
[2021-01-20] MEDS ORDERED: ONDANSETRON 4 MG/2 ML VIAL IVPUSH PRN ×2 (15:13→17:55)
[2021-01-20] MEDS ORDERED: LACTATED RINGERS SOLUTION 1,000 ML IV SCH ×2 (15:15→17:55)
[2021-01-20] MEDS ORDERED: BUPIVACAINE HCL/PF 0.5% (5 MG/ML) 30 ML VIAL IJ ONE (16:03)
[2021-01-20] MEDS ORDERED: NEOSTIGMINE METHYLSULFATE 0.5 MG/1 ML - 10 ML MDV ONE (16:07)
[2021-01-20] MEDS ORDERED: DEXAMETHASONE SOD PHOSPHATE 4 MG/1 ML VIAL ONE (16:07)
[2021-01-20] MEDS ORDERED: ONDANSETRON 4 MG/2 ML VIAL ONE ×2 (16:07→17:56)
[2021-01-20] MEDS ORDERED: KETOROLAC TROMETHAMINE 30 MG/1 ML VIAL ONE (16:57)
[2021-01-20] MEDS: ACETAMINOPHEN 1000 MG/100 ML VIAL (NON FORMULARY) IVPB PRN (17:30)
[2021-01-20] MEDS ORDERED: ACETAMINOPHEN 325 MG TABLET (FP) PO PRN (17:35)
[2021-01-20] MEDS ORDERED: ACETAMINOPHEN INJECTION 100 ML IVPB ONE (17:35)
[2021-01-20] MEDS ORDERED: ACETAMINOPHEN 1000 MG/100 ML VIAL (NON FORMULARY) IVPB ONE (18:00)
[2021-01-20] MEDS: SCOPOLAMINE HYDROBROMIDE 1 PATCH PATCH.TD72 TD SCH ×2 (18:30→20:34)
[2021-01-20] MEDS ORDERED: PROMETHAZINE HCL 25 MG/1 ML VIAL ONE (19:02)
[2021-01-20] MEDS: HEPARIN NA (PORCINE) 5,000 UNITS/ML 1ML VIAL SQ SCH (21:11)
[2021-01-20] MEDS: oxyCODONE HCL 5 MG TABLET PO PRN (21:35)
[2021-01-21] MEDS ORDERED: DEXTROSE 5%-WATER - 50 ML IVPB ONE ×2 (02:03→09:34)
[2021-01-21] MEDS ORDERED: PIPERACILLIN/TAZOBACTAM 3.375 GM VIAL IVPB ONE ×2 (02:03→09:34)
[2021-01-21] MEDS: PIPERACILLIN/TAZOB 3.375 GM 3.375 GM in DEXTROSE 5%-WATER - 50 ML IVPB SCH ×2 (02:05→09:37)
[2021-01-21 09:00] LABS: BASO % 0.3 % (0-2.0); EOS % 0.6 % (0-4.5); HEMATOCRIT 31.6 % (32.4-45.2); HEMOGLOBIN 10.8 GM/dL (10.7-15.3); LYMPH % 30.6 % (8-40); MCH 29.8 pg (25.7-33.7); MCHC 34.1 g/dl (32.0-36.0); MEAN CELL VOLUME 87.5 fl (80-96); MONO % 4.9 % (3.8-10.2); NEUT % 63.6 % (42.8-82.8); PLATELET COUNT 330 K/MM3 (134-434); RBC 3.61 M/mm3 (3.60-5.2); RDW 13.8 % (11.6-15.6); WHITE BLOOD COUNT 8.2 K/mm3 (4.0-10.0)
[2021-01-21 09:28] LABS: CALCIUM 9.1 mg/dL (8.5-10.1)
[2021-01-21 09:32] LABS: CREATININE 0.7 mg/dL (0.55-1.3)
[2021-01-21 09:33] LABS: TOT PROT 6.3 g/dl (6.4-8.2)
[2021-01-21] MEDS: oxyCODONE HCL 5 MG TABLET PO PRN (09:46)
[2021-01-21] MEDS: HEPARIN NA (PORCINE) 5,000 UNITS/ML 1ML VIAL SQ SCH (09:49)
[2021-01-21 14:47] VITALS: BP 111/73; PULSE 77; TEMP 98.6
[2021-01-21] MEDS ORDERED: PIPERACILLIN/TAZOB 3.375 GM 3.375 GM in DEXTROSE 5%-WATER - 50 ML IVPB SCH (18:00)
== END 2021-01-21 18:13 | disposition home or self-care (01) | DRG 263 ==
LOC: JER 21:08 → JERBED 01-19 00:08 → J6S 01-19 20:44
PROVIDERS: ADMIT Internal Medicine; ATTEND Internal Medicine
PROC: 0DNU4ZZ Release Omentum, Percutaneous Endoscopic Approach (ICD-10-PCS; 2021-01-20)
PROC: 0FT44ZZ Resection of Gallbladder, Percutaneous Endoscopic Approach (ICD-10-PCS; principal; 2021-01-20 13:00)
DX: K81.0 Acute cholecystitis (principal); R10.11 Right upper quadrant pain; R11.2 Nausea with vomiting, unspecified; D72.829 Elevated white blood cell count, unspecified; K66.0 Peritoneal adhesions (postprocedural) (postinfection)
CPT/HCPCS: 36415; 71045-TC-FY; 76705-TC; 80053; 81003; 82150; 83605; 83690; 84703; 85025; 85610; 85730; 86850; 86900; 86901; 87086; 88304-TC; 93005; 93010; 94760; 99285-25; C9803; J0131; J1644; U0003; U0005